=== PATIENT | female | born 1955 | race Caucasian/White ===

== ENCOUNTER 2016-12-28 00:47 | Emergency (ER) | payer OTHER ==
[~2016-12-28] VITALS: Ht 167.6 cm; Wt 76.0 kg
[~2016-12-28 00:47] MED LIST: DIAZ-90 PO; HYDR-906 PO; OXYC-209 PO
[2016-12-28 00:50] VITALS: Ht 167.6 cm; Wt 76.0 kg
[2016-12-28] MEDS ORDERED: HYDROmorphONE 2 MG/ML SYG IM STA (03:58)
[2016-12-28] MEDS ORDERED: DIAZEPAM 5 MG/ML SYG IM ONE (04:00)
[2016-12-28] MEDS ORDERED: LIDOCAINE/MYLANTA 40 ML BTL PO ONE (04:00)
[2016-12-28] MEDS ORDERED: ONDANSETRON (ODT) 4 MG TAB ODT ONE (04:04)
[2016-12-28] MEDS ORDERED: ONDANSETRON 4 MG INJ ONE (04:11)
--- NOTE | 2016-12-28 04:16 | ERD ---
ER Documentation Chief Complaint Date/Time DATE: 12/28/16 TIME: 04:15 Chief Complaint right facial pain, hx- trigeminal neuralgia, abd pain with N/V x 1 day HPI 61-year-old female complains of right facial pain. History of chronic trigeminal neuralgia. Comes in for breakthrough pain. No new trauma. Nonfocal neurologically. No other current issues. ROS All systems reviewed and are negative except as per history of present illness. Medications Home Meds Active Scripts Diazepam* (Valium*) 5 Mg Tablet, 5 MG PO Q8 Y for ANXIETY, #7 TAB Prov:ELIZABET US BUSINESS LAW INSTRUCTOR 07/04/16 Oxycodone HCl/Acetaminophen (Percocet 10-325 mg Tablet) 1 Each Tablet, 1 EACH PO Q6, #7 TAB Prov:ELIZABET US BUSINESS LAW INSTRUCTOR 07/04/16 Reported Medications Hydrocodone/Acetaminophen ([place] 5-325 Tablet) Unknown Strength Tablet, PO Q6H Y for PAIN, #20 TAB 07/04/16 Allergies Allergies: Coded Allergies: No Known Allergy (Unverified , 07/04/16) PMhx/Soc History of Surgery: Yes (BRAIN SX) Anesthesia Reaction: No Hx Neurological Disorder: Yes (TRIGEMINAL NERVE DISEASE) Hx Respiratory Disorders: No Hx Cardiac Disorders: No Hx Psychiatric Problems: No Hx Miscellaneous Medical Probl: Yes (UPSET STOMACH DUE TO MEDS) Hx Alcohol Use: No Hx Substance Use: No Hx Tobacco Use: Yes Smoking Status: Current every day smoker Physical Exam Vitals Vital Signs Date Time Temp Pulse Resp B/P Pulse Ox O2 Delivery O2 Flow Rate FiO2 12/28/16 00:50 98.4 92 20 147/84 98 Physical Exam Const: [] Head: Atraumatic Eyes: Normal Conjunctiva ENT: Normal External Ears, Nose and Mouth. Neck: Full range of motion..~ No meningismus. Resp: Clear to auscultation bilaterally Cardio: Regular rate and rhythm, no murmurs Abd: Soft, non tender, non distended. Normal bowel sounds Skin: No petechiae or rashes Back: No midline or flank tenderness Ext: No cyanosis, or edema Neur: Awake and alert Psych: Normal Mood and Affect Results 24 hrs Current Medications Medications (Trade) Dose Ordered Sig/Tyler Route PRN Reason Start Time Stop Time Status Last Admin Dose Admin Hydromorphone HCl (Dilaudid) 2 mg ONCE STAT IM 12/28/16 03:58 12/28/16 03:59 DC 12/28/16 04:07 Diazepam (Valium) 5 mg ONCE ONCE IM 12/28/16 04:00 12/28/16 04:01 DC 12/28/16 04:07 Miscellaneous Medication (Gi Cocktail (2)) 40 ml ONCE ONCE PO 12/28/16 04:00 12/28/16 04:01 DC 12/28/16 04:07 Ondansetron HCl (Zofran Odt) 4 mg STK-MED ONCE ODT 12/28/16 04:04 12/28/16 04:05 DC Ondansetron HCl (Zofran Inj) 4 mg STK-MED ONCE .ROUTE 12/28/16 04:11 12/28/16 04:12 DC Procedures/MDM Patient given Dilaudid and Valium with good response. Patient will be discharged home. Told to follow-up with primary care physician and banner painter Departure Diagnosis: Primary Impression: Chronic pain Chronic pain type: chronic pain syndrome Qualified Code: G89.4 - Chronic pain syndrome Condition: Stable Patient Instructions: Chronic Pain BILL CM Dec 28, 2016 04:16
[2016-12-28] MEDS ORDERED: ONDANSETRON 4 MG INJ IM ONE (04:18)
[2016-12-28 04:34] VITALS: BP 124/63; PULSE 67; RESP 18
== END 2016-12-28 04:34 | disposition home or self-care (01) ==
LOC: E/R 00:47
DX: G89.4 Chronic pain syndrome (principal); R11.2 Nausea with vomiting, unspecified; F17.210 Nicotine dependence, cigarettes, uncomplicated
CPT/HCPCS: J1170; J2405; J3360; Z7610; 96372

== ENCOUNTER 2017-01-06 20:25 | Emergency (ER) | payer OTHER ==
[~2017-01-06] VITALS: Wt 78.5 kg
[2017-01-06] MEDS ORDERED: HYDROmorphONE 2 MG/ML SYG IM STA (21:53)
--- NOTE | 2017-01-06 21:58 | ERD ---
ER Documentation Chief Complaint Date/Time DATE: 01/06/17 TIME: 21:56 Chief Complaint Chronic face pain wants to get dilaudid HPI 61-year-old female presents with flareup of her chronic trigeminal neuralgia on the right side. She is followed by pain management but was told by her pain management to go to the emergency room at times but she is unable to control her pain at home and so she came today. She states in the past she has had good relief of her symptoms with Dilaudid, Zofran, Valium, and GI cocktail. She states this feels like a normal flare she has no other complaints. ROS All systems reviewed and are negative except as per history of present illness. Medications Home Meds Active Scripts Diazepam* (Valium*) 5 Mg Tablet, 5 MG PO Q8 Y for ANXIETY, #7 TAB Prov:ELIZABET US NP 07/04/16 Oxycodone HCl/Acetaminophen (Percocet 10-325 mg Tablet) 1 Each Tablet, 1 EACH PO Q6, #7 TAB Prov:ELIZABET US NP 07/04/16 Reported Medications Hydrocodone/Acetaminophen ([place] 5-325 Tablet) Unknown Strength Tablet, PO Q6H Y for PAIN, #20 TAB 07/04/16 Allergies Allergies: Coded Allergies: No Known Allergy (Unverified , 07/04/16) PMhx/Soc History of Surgery: Yes (BRAIN SX) Anesthesia Reaction: No Hx Neurological Disorder: Yes (TRIGEMINAL NERVE DISEASE) Hx Respiratory Disorders: No Hx Cardiac Disorders: No Hx Psychiatric Problems: No Hx Miscellaneous Medical Probl: Yes (UPSET STOMACH DUE TO MEDS) Hx Alcohol Use: No Hx Substance Use: No Hx Tobacco Use: Yes FmHx Family History: No diabetes Physical Exam Vitals Vital Signs Date Time Temp Pulse Resp B/P Pulse Ox O2 Delivery O2 Flow Rate FiO2 01/06/17 20:51 97.6 88 20 162/75 97 Physical Exam General: well developed, well nourished, alert, nontoxic, no distress Head: normocephalic, atraumatic eyes: perrl Oropharynx: no tonsilar erythema or edema, uvula midline, no exudates, no kissing tonsils, no drooling Respiratory: Clear to auscaultation bilaterally, speaks in full sentences, no use of accesory muscles or labored breathing, no rales, ronchi, or wheezing Cardiovascular: RRR, No murmurs GI: soft, non tender, non distended, negative murphys sign, negative mcburneys point tenderness, no cva tenderness bilaterally, no rebound or guarding Back: no midline tenderness, no step offs or bony abnormalities, sensation to light touch in tact Neuro: Alert and oriented, normal speech, normal gait, no cerebellar sign Results 24 hrs Current Medications Medications (Trade) Dose Ordered Sig/Tyler Route PRN Reason Start Time Stop Time Status Last Admin Dose Admin Hydromorphone HCl (Dilaudid) 2 mg ONCE STAT IM 01/06/17 21:53 01/06/17 21:54 DC Diazepam (Valium) 5 mg ONCE ONCE IM 01/06/17 22:00 01/06/17 22:01 Ondansetron HCl (Zofran Odt) 4 mg ONCE STAT ODT 01/06/17 21:53 01/06/17 21:54 DC Miscellaneous Medication (Gi Cocktail (2)) 40 ml ONCE ONCE PO 01/06/17 22:00 01/06/17 22:01 Procedures/MDM Patient presents with flareup of her chronic trigeminal neuralgia pain. She was given Dilaudid, Valium, Zofran, and GI cocktail with relief of her symptoms. She is instructed to follow-up with pain management. Recommended this patient follow up with her primary care doctor within 48 hours or return to the emergency room for any worsening of symptoms. However this time I do believe there is suitable for outpatient management. I answered all their questions and they agreed with the plan and were discharged home. Departure Diagnosis: Primary Impression: Chronic pain Condition: Stable Patient Instructions: Chronic Pain Additional Instructions: Call your primary care doctor TOMORROW for an appointment during the next 1-2 days.See the doctor sooner or return here if your condition worsens before your appointment time. RICK ESCALONA PA-C January 06, 2017 21:58
[2017-01-06] MEDS: ONDANSETRON (ODT) 4 MG TAB ODT STA ×2 (22:00→22:15)
[2017-01-06] MEDS ORDERED: LIDOCAINE/MYLANTA 40 ML BTL PO ONE (22:00)
[2017-01-06] MEDS ORDERED: DIAZEPAM 5 MG/ML SYG IM ONE (22:00)
[2017-01-06] MEDS ORDERED: ONDANSETRON 4 MG INJ IM STA (22:02)
[2017-01-06 22:31] VITALS: BP 137/73; PULSE 95; RESP 16
== END 2017-01-06 22:33 | disposition home or self-care (01) ==
LOC: FTE 20:25
DX: G89.29 Other chronic pain (principal); Z87.891 Personal history of nicotine dependence
CPT/HCPCS: J1170; J2405; J3360; Z7610; 96372

== ENCOUNTER 2017-01-16 22:46 | Emergency (ER) | payer OTHER ==
[~2017-01-16] VITALS: Ht 167.6 cm; Wt 74.5 kg
[2017-01-16 22:51] VITALS: Ht 167.6 cm; Wt 74.5 kg
[2017-01-16] MEDS ORDERED: ONDANSETRON 4 MG INJ IM STA (23:50)
[2017-01-16] MEDS ORDERED: HYDROmorphONE 2 MG/ML SYG IM STA (23:50)
[2017-01-17] MEDS ORDERED: DIAZEPAM 5 MG/ML SYG IM ONE
[2017-01-17] MEDS ORDERED: LIDOCAINE/MYLANTA 40 ML BTL PO ONE
--- NOTE | 2017-01-17 00:11 | ERD ---
ER Documentation Chief Complaint Date/Time DATE: 01/17/17 TIME: 00:05 Chief Complaint c/o right facial pain today hx of trigeminal neuralgia HPI 41-year-old female presents here in emergency department for complaints of right facial pain, patient has had this pain before, chronic pain, has history of chronic trigeminal neuralgia. Patient is on strong pain medications, is currently on pain management. Patient was told to come here in emergency department ROS All systems reviewed and are negative except as per history of present illness. Medications Home Meds Active Scripts Diazepam* (Valium*) 5 Mg Tablet, 5 MG PO Q8 Y for ANXIETY, #7 TAB Prov:ELIZABET US FLAG FOOTBALL COACH 07/04/16 Oxycodone HCl/Acetaminophen (Percocet 10-325 mg Tablet) 1 Each Tablet, 1 EACH PO Q6, #7 TAB Prov:ELIZABET US [employer] FOOTBALL COACH 07/04/16 Reported Medications Hydrocodone/Acetaminophen ([place] 5-325 Tablet) Unknown Strength Tablet, PO Q6H Y for PAIN, #20 TAB 07/04/16 Allergies Allergies: Coded Allergies: No Known Allergy (Unverified , 01/16/17) PMhx/Soc History of Surgery: Yes (BRAIN SX) Anesthesia Reaction: No Hx Neurological Disorder: Yes (TRIGEMINAL NERVE DISEASE) Hx Respiratory Disorders: No Hx Cardiac Disorders: No Hx Psychiatric Problems: No Hx Miscellaneous Medical Probl: Yes (UPSET STOMACH DUE TO MEDS) Hx Alcohol Use: No Hx Substance Use: No Hx Tobacco Use: Yes Smoking Status: Never smoker Physical Exam Vitals Vital Signs Date Time Temp Pulse Resp B/P Pulse Ox O2 Delivery O2 Flow Rate FiO2 01/16/17 22:51 96.9 74 20 144/70 96 Physical Exam GENERAL: The patient is well developed and appropriate for usual state of health, in no apparent distress. CHEST: Clear to auscultation bilaterally. There are no rales, wheezes or rhonchi. HEART: Regular rate and rhythm. No murmurs, clicks, rubs or gallops. No S3 or S4. ABDOMEN: Soft, nontender and nondistended. Good bowel sounds. No rebound or guarding. No gross peritonitis. No gross organomegaly or masses. No Rodríguez sign or McBurney point tenderness. BACK: No midline or flank tenderness. EXTREMITIES: Equal pulses bilaterally. There is no peripheral clubbing, cyanosis or edema. No focal swelling or erythema. Full range of motion. Grossly neurovascularly intact. NEURO: Alert and oriented. Cranial nerves 2-12 intact. Motor strength in all 4 extremities with 5/5 strength. Sensation grossly intact. Normal speech and gait. SKIN: There is no apparent rash or petechia. The skin is warm and dry. HEMATOLOGIC AND LYMPHATIC: There is no evidence of excessive bruising or lymphedema. No gross cervical, axillary, or inguinal lymphadenopathy. Procedures/MDM Medical decision-making. Patient is here for chronic pain, patient has history of trigeminal neuralgia. Patient is currently being managed by pain specialist, has an appointment on January 26, patient was told to come here in emergency department for temporary treatment of her pain. Patient was given medications, was advised to continue medications at home and to see primary care doctor or pain specialist sooner than expected. Patient is advised to return to emergency department for high fever, paralysis, paresthesias, or any worsening symptoms. Disposition: Home. Stable. Departure Diagnosis: Primary Impression: Chronic pain Chronic pain type: other chronic pain Qualified Code: G89.29 - Other chronic pain Condition: Stable Patient Instructions: Chronic Pain Additional Instructions: see painter interior finish ELIZABET US NP January 17, 2017 00:11
[2017-01-17 00:58] VITALS: BP 141/92; PULSE 70; RESP 16
== END 2017-01-17 00:59 | disposition home or self-care (01) ==
LOC: FTE 22:46
DX: G89.29 Other chronic pain (principal)
CPT/HCPCS: 96372; J1170; J2405; J3360; Z7502; Z7610

== ENCOUNTER 2017-02-24 11:46 | Emergency (ER) | payer OTHER ==
[~2017-02-24] VITALS: Ht 170.2 cm; Wt 70.0 kg
[2017-02-24 11:53] VITALS: Ht 170.2 cm; Wt 70.0 kg
[2017-02-24] MEDS ORDERED: LIDOCAINE/MYLANTA 40 ML BTL PO ONE (13:30)
--- NOTE | 2017-02-24 14:02 | ERD ---
ER Documentation Chief Complaint Date/Time DATE: 02/24/17 TIME: 13:59 Chief Complaint DENTAL PAIN RELATED TO PRIOR DENTAL INJURY HPI Patient is a 61-year-old female with chronic pain who presents with pain. She has trigeminal pain in the right face. She has had this for a long time. She is seeing a pain management doctor and actually saw this doctor yesterday a Dr. Watt. She received a prescription for 8 mg of Dilaudid tablets from his doctor yesterday. She said that she is still having pain and says "I need Dilaudid IV and Valium IV". Upon review of old medical records she has multiple visits to the ER for similar type complaints. Review of the emergency department information exchange system shows visits to 3 separate emergency departments for a total of 15 visits over the past 1 year. ROS All systems reviewed and are negative except as per history of present illness. Medications Home Meds Active Scripts Diazepam* (Valium*) 5 Mg Tablet, 5 MG PO Q8 Y for ANXIETY, #7 TAB Prov:ELIZABET US NP 07/04/16 Oxycodone HCl/Acetaminophen (Percocet 10-325 mg Tablet) 1 Each Tablet, 1 EACH PO Q6, #7 TAB Prov:ELIZABET US NP 07/04/16 Reported Medications Hydrocodone/Acetaminophen ([place] 5-325 Tablet) Unknown Strength Tablet, PO Q6H Y for PAIN, #20 TAB 07/04/16 Allergies Allergies: Coded Allergies: No Known Allergy (Unverified , 01/16/17) PMhx/Soc History of Surgery: Yes (BRAIN SX) Anesthesia Reaction: No Hx Neurological Disorder: Yes (TRIGEMINAL NERVE DISEASE) Hx Respiratory Disorders: No Hx Cardiac Disorders: No Hx Psychiatric Problems: No Hx Miscellaneous Medical Probl: Yes (UPSET STOMACH DUE TO MEDS) Hx Alcohol Use: No Hx Substance Use: No Hx Tobacco Use: Yes Smoking Status: Current every day smoker FmHx Family History: No diabetes Physical Exam Vitals Vital Signs Date Time Temp Pulse Resp B/P Pulse Ox O2 Delivery O2 Flow Rate FiO2 02/24/17 11:53 97.5 56 16 116/77 95 Physical Exam Const: Mild distress secondary to pain, slurring speech Head: Atraumatic Eyes: Normal Conjunctiva ENT: Normal External Ears, Nose and Mouth. Neck: Full range of motion..~ No meningismus. Resp: Clear to auscultation bilaterally Cardio: Regular rate and rhythm, no murmurs Abd: Soft, non tender, non distended. Normal bowel sounds Skin: No petechiae or rashes Back: No midline or flank tenderness Ext: No cyanosis, or edema Neur: Awake and alert, slurring speech Psych: Depressed affect Results 24 hrs Current Medications Medications (Trade) Dose Ordered Sig/Tyler Route PRN Reason Start Time Stop Time Status Last Admin Dose Admin Miscellaneous Medication (Gi Cocktail (2)) 40 ml ONCE ONCE PO 02/24/17 13:30 02/24/17 13:31 DC 02/24/17 13:12 Procedures/MDM Patient is a 61-year-old female who appears to have acute on chronic pain. I told her that per our pain management policy here at [facility] that I would not give her IV or IM narcotic medicines or benzodiazepine medicines. She and her son were mad and asked me to call the pain management doctor which I did. I spoke with Dr. Watt who said "why would she need IV Dilaudid when I gave her 8 mg of Dilaudid yesterday?" He agreed that we did not need to give her IV or IM narcotic medicines at this time. The patient will be discharged and I would not give her narcotic medicines in the future. She will need to get her pain medications from her pain management doctor. She will be referred to the chronic pain management committee so that a care plan can be developed for her as well to help manage her pain. Departure Diagnosis: Primary Impression: Chronic pain Chronic pain type: other chronic pain Qualified Code: G89.29 - Other chronic pain Additional Impression: Pain, dental Condition: Fair Patient Instructions: Chronic Pain, Dental Pain Referrals: Dr. Sorensen Additional Instructions: SPECIALIST: YOU HAVE A MEDICAL CONDITION WHICH REQUIRES YOU TO SEE A SPECIALIST WITHIN THE NEXT 1-2 DAYS. PLEASE FOLLOW UP WITH YOUR PRIMARY PHYSICIAN FOR REFFERAL.IF YOU DO NOT HAVE A PRIMARY CARE PHYSICIAN AND/OR YOU CAN NOT AFFORD TO SEE A PHYSICIAN THE FOLLOWING RESOURCES HAVE BEEN SUPPLIED TO YOU. IT IS YOUR RESPONSIBILITY TO BE SEEN BY THE SPECIALIST DIA CHOUDHURY MD Feb 24, 2017 14:02
== END 2017-02-24 13:58 | disposition home or self-care (01) ==
LOC: FTE 11:46
DX: K08.89 Other specified disorders of teeth and supporting structures (principal); F17.210 Nicotine dependence, cigarettes, uncomplicated
CPT/HCPCS: 99282

== ENCOUNTER 2017-06-28 22:05 | Emergency (ER) | payer SELFPAY ==
[~2017-06-28] VITALS: Ht 165.1 cm; Wt 73.5 kg
[2017-06-28 22:23] VITALS: Ht 165.1 cm; Wt 73.5 kg
== END 2017-06-29 02:58 | disposition left against medical advice (07) ==
LOC: FTE 22:05
DX: Z53.21 Procedure and treatment not carried out due to patient leaving prior to being seen by health care provider (principal)

== ENCOUNTER 2017-07-05 22:39 | Emergency (ER) | payer OTHER ==
[~2017-07-05] VITALS: Ht 165.1 cm; Wt 67.0 kg
[2017-07-05 22:43] VITALS: Ht 165.1 cm; Wt 67.0 kg
[2017-07-05] MEDS ORDERED: BACL10TA PO (23:24)
[2017-07-05] MEDS ORDERED: HYDR8TAB PO (23:24)
[2017-07-05] MEDS ORDERED: PREG150C PO (23:24)
[2017-07-05] MEDS ORDERED: EXCED PO (23:24)
[2017-07-05] MEDS ORDERED: CARB200T43 PO (23:24)
[2017-07-05] MEDS ORDERED: UDTEG GTB (23:24)
[2017-07-05] MEDS ORDERED: DULO60CA59 PO (23:24)
[2017-07-05] MEDS ORDERED: OMEP40CA6 PO (23:24)
[2017-07-05] MEDS ORDERED: LISI40TA9 PO (23:24)
[2017-07-05] MEDS ORDERED: IBUP-1542 PO (23:34)
[2017-07-05] MEDS ORDERED: CLON2TAB3 PO (23:34)
[2017-07-05] MEDS ORDERED: TRAZ50TA18 PO (23:34)
[2017-07-05] MEDS ORDERED: [UNRECOGNIZED DRUG - CODE] PO (23:34)
[2017-07-05] MEDS ORDERED: ATEN50TA PO (23:34)
[2017-07-05] MEDS ORDERED: ONDA8TAB83 PO (23:34)
[2017-07-05] MEDS ORDERED: LEVO500T10 PO (23:34)
[2017-07-05] MEDS ORDERED: ONDANSETRON (ODT) 4 MG TAB ODT STA (23:37)
--- NOTE | 2017-07-05 23:40 | RADRPT ---
PROCEDURE: Chest. CLINICAL INDICATION: Shortness of breath. TECHNIQUE: Single frontal view of the chest was obtained. COMPARISON: None. FINDINGS: The cardiac silhouette is magnified. The aortic arch is unremarkable. There is no focal consolidat ion, vascular congestion or pleural effusion. There is no pneumothorax. IMPRESSION: No evidence for active cardiopulmonary disease. .Praneeth Hunter MD, MD Date Time Electronically viewed and signed by .Praneeth Hunter MD, on 07/05/2017 23:40 .T/
[2017-07-05] MEDS ORDERED: ONDA4TAB14 PO (23:56)
[2017-07-06] MEDS ORDERED: LIDOCAINE/MYLANTA 40 ML BTL PO ONE
--- NOTE | 2017-07-06 23:24 | ERD ---
ER Documentation Chief Complaint Chief Complaint TRIGEMINAL NEURALGIA W/ WORSENING PAIN SINCE YESTERDAY HPI The patient was seen on 07/05/2017 The patient is a 61-year-old female, presenting to the ER because she wants Dilaudid injection for her chronic trigeminal neuralgia pain. She is follow-up with chronic pain management physician. She is controlled on Dilaudid, however she is that it is not helping her. She denies any trauma, fever, chills, syncope, near syncope, neck pain, chest pain, dyspnea, abdominal pain, vomiting , dysuria. She was in the ER in February 24, 2017 for similar request. She smokes socially Past medical history: Chronic pain syndrome, trigeminal neuralgia ROS All systems reviewed and are negative except as per history of present illness. Medications Home Meds Active Scripts Ondansetron (Ondansetron Odt) 4 Mg Tab.rapdis, 4 MG PO Q6H Y for NAUSEA AND/OR VOMITING, #10 TAB Prov:HEIDE PRECIADO MD 07/05/17 Diazepam* (Valium*) 5 Mg Tablet, 5 MG PO Q8 Y for ANXIETY, #7 TAB Prov:ELIZABET US NP 07/04/16 Oxycodone HCl/Acetaminophen (Percocet 10-325 mg Tablet) 1 Each Tablet, 1 EACH PO Q6, #7 TAB Prov:ELIZABET US NP 07/04/16 Reported Medications Trazodone Hcl* (Trazodone Hcl*) 50 Mg Tablet, 100 MG PO QHS, #30 TAB TAKE 2 TABLETS PO AT BEDTIME 07/05/17 Atenolol* (Atenolol*) 50 Mg Tablet, 50 MG PO DAILY, #30 TAB TAKE 1 TABLET PO ONCE A DAY 07/05/17 Ondansetron Hcl* (Ondansetron Hcl*) 8 Mg Tablet, 8 MG PO BID Y for NAUSEA AND OR VOMITING, TAB TAKE 1 TABLET PO TWICE A DAY IF NEEDED FOR NAUSEA AND VOMITING 07/05/17 Clonazepam* (Clonazepam*) 2 Mg Tablet, 2 MG PO BID, TAB TAKE 1 TAB PO TWICE DAILY 07/05/17 Ibuprofen* (Ibuprofen*) 600 Mg Tablet, 600 MG PO Q8 for PAIN, TAB TAKE 1 TAB PO THREE TIMES A DAY 07/05/17 Chlorzoxazone (Chlorzoxazone) 500 Mg Tablet, 500 MG PO BID, TAB TAKE 1 TABLET PO TWICE DAILY 07/05/17 Levofloxacin* (Levofloxacin*) 500 Mg Tablet, 500 MG PO Q24H, TAB 07/05/17 Carbamazepine* (Carbamazepine* XR) 200 Mg Tab.er.12h, 200 MG PO Q12, #60 TAB.SA 07/05/17 Baclofen* (Baclofen*) 10 Mg Tablet, 10 MG PO TID, TAB TAKE 1 TAB PO THREE TIMES A DAY 07/05/17 Omeprazole* (Omeprazole*) 40 Mg Capsule.dr, 40 MG PO DAILY, #30 CAP TAKE 1 CAP PO ONCE DAIY BEEFORE A MEAL IN COMBINATION W/CLARITHROMYCIN FO 30 DAYS 07/05/17 Pregabalin* (Lyrica*) 150 Mg Capsule, 150 MG PO Q12H, CAP TAKE 1 CAPSULE BY MOUTH Q12H 07/05/17 Duloxetine Hcl* (Duloxetine Hcl*) 60 Mg Capsule.dr, 60 MG PO DAILY, #30 CAP 07/05/17 Acetaminophen/Aspirin/Caffeine* (Excedrin*) 1 Tab Tab, 1 TAB PO for PAIN LEVEL 1 -3, TAB 07/05/17 Lisinopril* (Lisinopril*) 40 Mg Tablet, 40 MG PO DAILY, #30 TAB 07/05/17 Hydromorphone Hcl* (Hydromorphone Hcl*) 8 Mg Tablet, 8 MG PO PRN, TAB TAKE 1 TAB PO ONCE DAILY IF NEEDED FOR PAIN 07/05/17 Hydrocodone/Acetaminophen ([place] 5-325 Tablet) Unknown Strength Tablet, PO Q6H Y for PAIN, #20 TAB 07/04/16 Discontinued Reported Medications Carbamazepine* (Tegretol*) 100 Mg/5 Ml Susp, 200 MG GTB BID, ML TAKE 1 TAB PO TWICE A DAY 07/05/17 Allergies Allergies: Coded Allergies: No Known Allergy (Unverified , 06/28/17) PMhx/Soc History of Surgery: Yes (BRAIN SX) Anesthesia Reaction: No Hx Neurological Disorder: Yes (TRIGEMINAL NERVE DISEASE) Hx Respiratory Disorders: No Hx Cardiac Disorders: No Hx Psychiatric Problems: No Hx Miscellaneous Medical Probl: Yes (UPSET STOMACH DUE TO MEDS) Hx Alcohol Use: No Hx Substance Use: No Hx Tobacco Use: Yes Smoking Status: Current every day smoker Physical Exam Vitals Vital Signs Date Time Temp Pulse Resp B/P Pulse Ox O2 Delivery O2 Flow Rate FiO2 07/05/17 22:43 98.2 72 20 152/84 95 Physical Exam Const: No acute distress. Head: Atraumatic. Eyes: Normal Conjunctiva. ENT: Normal External Ears, Nose and Mouth. Neck: Full range of motion. No meningismus. Resp: Scattered rhonchi, no wheezes Cardio: Regular rate and rhythm. Abd: Soft, non distended, normal bowel sounds, non tender. Skin: No petechiae or rashes. Back: No midline or flank tenderness. Ext: No cyanosis, or edema. Neur: Awake and alert. No focal deficit Psych: Normal Mood and Affect. Results 24 hrs Current Medications Medications (Trade) Dose Ordered Sig/Tyler Route PRN Reason Start Time Stop Time Status Last Admin Dose Admin Miscellaneous Medication (Gi Cocktail (2)) 40 ml ONCE ONCE PO 07/06/17 00:00 07/06/17 00:01 DC 07/06/17 00:48 Ondansetron HCl (Zofran Odt) 4 mg ONCE STAT ODT 07/05/17 23:37 07/05/17 23:38 DC 07/06/17 00:48 Procedures/[place] [id number] Radiology Main Line: [phone] DIAGNOSTIC IMAGING REPORT Patient: SADIE WILSON : 1955 Age: 61 Sex: F MR #: [id number] DOS: 07/05/17 2249 Ordering MD: HEIDE PRECIADO MD Location: E/R Room/Bed: PROCEDURE: Chest. CLINICAL INDICATION: Shortness of breath. TECHNIQUE: Single frontal view of the chest was obtained. COMPARISON: None. FINDINGS: The cardiac silhouette is magnified. The aortic arch is unremarkable. There is no focal consolidation, vascular congestion or pleural effusion. There is no pneumothorax. IMPRESSION: No evidence for active cardiopulmonary disease. .Praneeth Hunter MD, Date Time Electronically viewed and signed by .Praneeth Hunter MD, MD on 07/05/2017 23:40 .T/ CC: HEIDE PRECIADO MD EKG: Read by emergency physician Rate/Rhythm: Normal Sinus Rhythm 70 beats/min QRS, ST, T-waves: No ST elevation, no T inversion, Left atrial enlargement Impression: Abnormal EKG MEDICAL MAKING DECISION: The patient is a 61-year-old female, presenting to the ER for chronic pain syndrome. She requested a GI cocktail and Zofran that were given to her. I advised her that she has a follow-up with her chronic pain medicine physician to titrate her pain medication Departure Diagnosis: Primary Impression: Chronic pain Condition: Good Patient Instructions: Trigeminal Neuralgia Referrals: VISH MACHADO MD (PCP) Additional Instructions: Call your chronic pain managment physician TOMORROW for an appointment during the next 1-2 days.See the doctor sooner or return here if your condition worsens before your appointment time. The patient's blood pressure was elevated (>120/80) but appears stable without evidence of hypertension emergency or urgency. The patient was counseled about the risks of hypertension and urged to pursue outpatient monitoring and therapy within a week with their primary care physician. I discussed the findings with the patient. I advised the patient to follow-up with the primary physician in about 1-2 days, sooner if needed and return if any concern. Disclaimer: Inadvertent spelling and grammatical errors are likely due to EHR/ dictation software use and do not reflect on the overall quality of patient care. Also, please note that the electronic time recorded on this note does not necessarily reflect the actual time of the patient encounter. HEIDE PRECIADO MD Jul 06, 2017 23:23
== END 2017-07-06 00:59 | disposition home or self-care (01) ==
LOC: E/R 22:39
DX: G50.0 Trigeminal neuralgia (principal); R40.2252 Coma scale, best verbal response, oriented, at arrival to emergency department; G89.29 Other chronic pain; F17.210 Nicotine dependence, cigarettes, uncomplicated; R40.2142 Coma scale, eyes open, spontaneous, at arrival to emergency department; R40.2362 Coma scale, best motor response, obeys commands, at arrival to emergency department; R07.9 Chest pain, unspecified
CPT/HCPCS: 71010; 93005; Z7502; Z7610

== ENCOUNTER 2018-07-11 19:02 | Emergency (ER) | END 2018-07-11 20:20 | disposition left against medical advice (07) ==

== ENCOUNTER 2018-12-10 22:23 | Emergency (ER) | payer OTHER ==
[~2018-12-10] VITALS: Ht 167.6 cm; Wt 63.8 kg
[~2018-12-10 22:23] MED LIST changes: +ATEN50TA PO; +BACL10TA PO; +CARB200T43 PO; +CLON2TAB12 PO; -DIAZ-90 PO; +DIAZ5TAB PO; +DULO60CA59 PO; +EXCED PO; +HYDR-4011 PO; -HYDR-906 PO; +HYDR8TAB PO; +IBUP-1542 PO; +LEVO500T10 PO; +LISI40TA3 PO; +OMEP40CA6 PO; +ONDA4TAB14 PO; +ONDA8TAB83 PO; +PREG150C PO; +TRAZ-111 PO; +[UNRECOGNIZED DRUG - CODE] PO
[2018-12-10 22:30] VITALS: Ht 167.6 cm; Wt 63.8 kg
[2018-12-11] MEDS ORDERED: BELLADONNA/PHENOBARBITAL TAB PO STA (01:15)
[2018-12-11] MEDS ORDERED: ONDANSETRON 4 MG INJ IV STA (01:15)
[2018-12-11] MEDS ORDERED: HYDROmorphONE 1 MG/ML SYG IV STA (01:15)
[2018-12-11] MEDS ORDERED: LIDOCAINE/MYLANTA 40 ML BTL PO STA (01:15)
--- NOTE | 2018-12-11 01:29 | ERD ---
ER Documentation Chief Complaint Chief Complaint BIB ra 81, generalized body pain. ran out of pain meds. HPI 63-year-old female presents with history of chronic pain and trigeminal neuralgi a complains of generalized pain in multiple areas of her body including neck, face, foot and bilateral legs. States she has a history of trigeminal neuralgia and she thinks that is now acting up. She is requesting pain medication as well as GI cocktail and Zofran. Denies chest pain, shortness of breath, diaphoresis, wheezing, fevers, vomiting, chills, weakness, numbness, tingling. ROS All systems reviewed and are negative except as per history of present illness. Medications Home Meds Active Scripts Hydrocodone/Acetaminophen ([place] 5-325 Tablet) 1 Each Tablet, 1 TAB PO Q6H PRN for PAIN, #7 TAB Prov:BILL CAAL 12/11/18 Ondansetron (Ondansetron Odt) 4 Mg Tab.rapdis, 4 MG PO Q6H PRN for NAUSEA AND/OR VOMITING, #10 TAB Prov:HEIDE PRECIADO MD 07/05/17 Diazepam* (Valium*) 5 Mg Tablet, 5 MG PO Q8 PRN for ANXIETY, #7 TAB Prov:ELIZABET US NP 07/04/16 Oxycodone HCl/Acetaminophen (Percocet 10-325 mg Tablet) 1 Each Tablet, 1 EACH PO Q6, #7 TAB Prov:ELIZABET US NP 07/04/16 Reported Medications Trazodone Hcl* (Trazodone Hcl*) 50 Mg Tablet, 100 MG PO QHS, #30 TAB TAKE 2 TABLETS PO AT BEDTIME 07/05/17 Atenolol* (Atenolol*) 50 Mg Tablet, 50 MG PO DAILY, #30 TAB TAKE 1 TABLET PO ONCE A DAY 07/05/17 Ondansetron Hcl* (Ondansetron Hcl*) 8 Mg Tablet, 8 MG PO BID PRN for NAUSEA AND OR VOMITING, TAB TAKE 1 TABLET PO TWICE A DAY IF NEEDED FOR NAUSEA AND VOMITING 07/05/17 Clonazepam* (Clonazepam*) 2 Mg Tablet, 2 MG PO BID, TAB TAKE 1 TAB PO TWICE DAILY 07/05/17 Ibuprofen* (Ibuprofen*) 600 Mg Tablet, 600 MG PO Q8 for PAIN, TAB TAKE 1 TAB PO THREE TIMES A DAY 07/05/17 Chlorzoxazone (Chlorzoxazone) 500 Mg Tablet, 500 MG PO BID, TAB TAKE 1 TABLET PO TWICE DAILY 07/05/17 Levofloxacin* (Levofloxacin*) 500 Mg Tablet, 500 MG PO Q24H, TAB 07/05/17 Carbamazepine* (Carbamazepine* XR) 200 Mg Tab.er.12h, 200 MG PO Q12, #60 TAB.SA 07/05/17 Baclofen* (Baclofen*) 10 Mg Tablet, 10 MG PO TID, TAB TAKE 1 TAB PO THREE TIMES A DAY 07/05/17 Omeprazole* (Omeprazole*) 40 Mg Capsule.dr, 40 MG PO DAILY, #30 CAP TAKE 1 CAP PO ONCE DAIY BEEFORE A MEAL IN COMBINATION W/CLARITHROMYCIN FO 30 DAYS 07/05/17 Pregabalin* (Lyrica*) 150 Mg Capsule, 150 MG PO Q12H, CAP TAKE 1 CAPSULE BY MOUTH Q12H 07/05/17 Duloxetine Hcl* (Duloxetine Hcl*) 60 Mg Capsule.dr, 60 MG PO DAILY, #30 CAP 07/05/17 Acetaminophen/Aspirin/Caffeine* (Excedrin*) 1 Tab Tab, 1 TAB PO for PAIN LEVEL 1-3, TAB 07/05/17 Lisinopril* (Lisinopril*) 40 Mg Tablet, 40 MG PO DAILY, #30 TAB 07/05/17 Hydromorphone Hcl* (Hydromorphone Hcl*) 8 Mg Tablet, 8 MG PO PRN, TAB TAKE 1 TAB PO ONCE DAILY IF NEEDED FOR PAIN 07/05/17 Hydrocodone/Acetaminophen ([place] 5-325 Tablet) Unknown Strength Tablet, PO Q6H PRN for PAIN, #20 TAB 07/04/16 Allergies Allergies: Coded Allergies: No Known Allergy (Unverified , 12/10/18) PMhx/Soc History of Surgery: Yes (BRAIN SX) Anesthesia Reaction: No Hx Neurological Disorder: Yes (TRIGEMINAL NERVE DISEASE) Hx Respiratory Disorders: No Hx Cardiac Disorders: No Hx Psychiatric Problems: No Hx Miscellaneous Medical Probl: Yes (UPSET STOMACH DUE TO MEDS) Hx Alcohol Use: No Hx Substance Use: No Hx Tobacco Use: Yes FmHx Family History: No diabetes, No coronary disease, No other Physical Exam Vitals Vital Signs Date Temp Pulse Resp B/P (MAP) Pulse Ox O2 O2 Flow FiO2 Time Delivery Rate 12/10/18 98.2 79 20 145/79 99 22:30 (101) 12/10/18 98.1 72 18 146/91 96 22:28 (109) Physical Exam Const: No acute distress Head: Atraumatic Eyes: Normal Conjunctiva ENT: Normal External Ears, Nose and Mouth. Neck: Full range of motion. No meningismus. Resp: Clear to auscultation bilaterally Cardio: Regular rate and rhythm, no murmurs Abd: Soft, non tender, non distended. Normal bowel sounds Skin: No petechiae or rashes Back: No midline or flank tenderness Ext: No cyanosis, or edema Neur: Awake and alert Psych: Normal Mood and Affect Results 24 hrs Current Medications Medications Dose Sig/Tyler Start Time Status Last (Trade) Ordered Route PRN Stop Time Admin Dose Reason Admin 1 mg ONCE STAT 12/11/18 DC Hydromorphone IV 01:15 12/11/18 HCl 01:19 (Dilaudid) Ondansetron 4 mg ONCE STAT 12/11/18 DC HCl (Zofran IV 01:15 12/11/18 Inj) 01:19 40 ml ONCE STAT 12/11/18 DC Miscellaneous PO 01:15 12/11/18 Medication 01:19 (Gi Cocktail (2)) Belladonna/ 2 tab ONCE STAT 12/11/18 DC Phenobarbital PO 01:15 12/11/18 () 01:19 Procedures/MDM EKG: Rate/Rhythm: Normal Sinus Rhythm QRS, ST, T-waves: No changes consistent w/ acute ischemia Impression: No evidence of ischemia or arrhythmia MDM: patient was given pain medication as well as GI cocktail Zofran in the ER. Patient was advised that she needs to follow-up with pain management regarding her chronic pain. I have low suspicition for acute coronary syndrome, pulmonary embolism, aortic dissection, AAA, pneumothorax, esophageal rupture, carotid dissection, pericarditis, myocarditis, or pneumonia based on EKG, patient history and exam. Patient discharged with strict ER precautions. Patient advised to follow up with PMD. All questions answered at discharge. Departure Diagnosis: Primary Impression: Chronic pain Chronic pain type: other chronic pain Qualified Codes: G89.29 - Other chronic pain Additional Impression: Trigeminal neuralgia Condition: Stable MARGOLIES,BILL Dec 11, 2018 01:29
[2018-12-11] MEDS ORDERED: HYDR-4011 PO (01:32)
[2018-12-11 02:12] VITALS: BP 175/86; PULSE 70; RESP 16
== END 2018-12-11 02:15 | disposition home or self-care (01) ==
LOC: FTE 22:23
DX: G50.0 Trigeminal neuralgia (principal); G89.29 Other chronic pain; Z87.891 Personal history of nicotine dependence
CPT/HCPCS: 93005; 96374; 96375; J1170; J2405; Z7502; Z7610

== ENCOUNTER 2019-04-04 20:04 | Emergency (ER) | payer OTHER ==
[~2019-04-04] VITALS: Ht 167.6 cm; Wt 57.4 kg
[~2019-04-04 20:04] MED LIST changes: +METH750T93 PO
[2019-04-04 20:16] VITALS: Ht 167.6 cm; Wt 57.4 kg
[2019-04-04] MEDS ORDERED: morphine 4 MG/ML VIAL IM STA (20:48)
[2019-04-04] MEDS ORDERED: ONDANSETRON (ODT) 4 MG TAB ODT STA (20:48)
[2019-04-04] MEDS ORDERED: LIDOCAINE/MYLANTA 40 ML BTL PO ONE (21:00)
--- NOTE | 2019-04-04 21:41 | ERD ---
ER Documentation Chief Complaint Chief Complaint BIBA FROM HOME R SIDE JAW/FACIAL PAIN SINCE 2004 HPI 63-year-old female with history of trigeminal neuralgia presents for right-sided facial pain x4 days. She states that she is on chronic pain management with her pain management doctor however she states she ran out of pain medications and was unable to get an appointment. She also complains of tightness over the right side of her neck. She states she has been vomiting from the pain. She is on Imitrex and carbamazepine. She also takes narcotic pain medication which she is currently out of. She states that she is about 10 out of 10 pain. The pain is described as a [id number] sensation. The pain is nonradiating. There is no worsening or alleviating factors noted. She denies any fevers or chills. Denies chest pain or shortness of breath. No other modifying factors noted. No other treatments tried at home. ROS All systems reviewed and are negative except as per history of present illness. Medications Home Meds Active Scripts Ondansetron (Ondansetron Odt) 4 Mg Tab.rapdis, 4 MG PO Q6H PRN for NAUSEA AND/OR VOMITING, #15 TAB Prov:HEIDE CHAWLA DO 04/04/19 Methocarbamol* (Robaxin*) 750 Mg Tablet, 750 MG PO TID PRN for MUSCLE SPASMS, #30 TAB Prov:HEIDE CHAWLA DO 04/04/19 Hydrocodone/Acetaminophen ([place] 5-325 Tablet) 1 Each Tablet, 1 EACH PO Q6H PRN for PAIN, #10 TAB Prov:HEIDE CHAWLA DO 04/04/19 Hydrocodone/Acetaminophen ([place] 5-325 Tablet) 1 Each Tablet, 1 TAB PO Q6H PRN for PAIN, #7 TAB Prov:BILL CAAL 12/11/18 Ondansetron (Ondansetron Odt) 4 Mg Tab.rapdis, 4 MG PO Q6H PRN for NAUSEA AND/OR VOMITING, #10 TAB Prov:HEIDE PRECIADO MD 07/05/17 Diazepam* (Valium*) 5 Mg Tablet, 5 MG PO Q8 PRN for ANXIETY, #7 TAB Prov:ELIZABET US NP 07/04/16 Oxycodone HCl/Acetaminophen (Percocet 10-325 mg Tablet) 1 Each Tablet, 1 EACH PO Q6, #7 TAB Prov:ELIZABET US NORA JaylinErica LOVE 07/04/16 Reported Medications Trazodone Hcl* (Trazodone Hcl*) 50 Mg Tablet, 100 MG PO QHS, #30 TAB TAKE 2 TABLETS PO AT BEDTIME 07/05/17 Atenolol* (Atenolol*) 50 Mg Tablet, 50 MG PO DAILY, #30 TAB TAKE 1 TABLET PO ONCE A DAY 07/05/17 Ondansetron Hcl* (Ondansetron Hcl*) 8 Mg Tablet, 8 MG PO BID PRN for NAUSEA AND OR VOMITING, TAB TAKE 1 TABLET PO TWICE A DAY IF NEEDED FOR NAUSEA AND VOMITING 07/05/17 Clonazepam* (Clonazepam*) 2 Mg Tablet, 2 MG PO BID, TAB TAKE 1 TAB PO TWICE DAILY 07/05/17 Ibuprofen* (Ibuprofen*) 600 Mg Tablet, 600 MG PO Q8 for PAIN, TAB TAKE 1 TAB PO THREE TIMES A DAY 07/05/17 Chlorzoxazone (Chlorzoxazone) 500 Mg Tablet, 500 MG PO BID, TAB TAKE 1 TABLET PO TWICE DAILY 07/05/17 Levofloxacin* (Levofloxacin*) 500 Mg Tablet, 500 MG PO Q24H, TAB 07/05/17 Carbamazepine* (Carbamazepine* XR) 200 Mg Tab.er.12h, 200 MG PO Q12, #60 TAB.SA 07/05/17 Baclofen* (Baclofen*) 10 Mg Tablet, 10 MG PO TID, TAB TAKE 1 TAB PO THREE TIMES A DAY 07/05/17 Omeprazole* (Omeprazole*) 40 Mg Capsule.dr, 40 MG PO DAILY, #30 CAP TAKE 1 CAP PO ONCE DAIY BEEFORE A MEAL IN COMBINATION W/CLARITHROMYCIN FO 30 DAYS 07/05/17 Pregabalin* (Lyrica*) 150 Mg Capsule, 150 MG PO Q12H, CAP TAKE 1 CAPSULE BY MOUTH Q12H 07/05/17 Duloxetine Hcl* (Duloxetine Hcl*) 60 Mg Capsule.dr, 60 MG PO DAILY, #30 CAP 07/05/17 Acetaminophen/Aspirin/Caffeine* (Excedrin*) 1 Tab Tab, 1 TAB PO for PAIN LEVEL 1-3, TAB 07/05/17 Lisinopril* (Lisinopril*) 40 Mg Tablet, 40 MG PO DAILY, #30 TAB 07/05/17 Hydromorphone Hcl* (Hydromorphone Hcl*) 8 Mg Tablet, 8 MG PO PRN, TAB TAKE 1 TAB PO ONCE DAILY IF NEEDED FOR PAIN 07/05/17 Hydrocodone/Acetaminophen ([place] 5-325 Tablet) Unknown Strength Tablet, PO Q6H PRN for PAIN, #20 TAB 07/04/16 Allergies Allergies: Coded Allergies: No Known Allergy (Unverified , 12/10/18) PMhx/Soc History of Surgery: Yes (BRAIN SX) Anesthesia Reaction: No Hx Neurological Disorder: Yes (TRIGEMINAL NERVE DISEASE) Hx Respiratory Disorders: No Hx Cardiac Disorders: No Hx Psychiatric Problems: No Hx Miscellaneous Medical Probl: Yes (UPSET STOMACH DUE TO MEDS) Hx Alcohol Use: No Hx Substance Use: No Hx Tobacco Use: Yes Smoking Status: Current every day smoker FmHx Family History: No coronary disease Physical Exam Vitals Vital Signs Date Temp Pulse Resp B/P (MAP) Pulse Ox O2 O2 Flow FiO2 Time Delivery Rate 04/04/19 97.6 89 16 147/68 98 20:16 (94) Physical Exam Const: No acute distress Head: Atraumatic, there is some tenderness to light palpation over the right side of the face Eyes: Normal Conjunctiva ENT: Normal External Ears, Nose and Mouth. Neck: Full range of motion. No meningismus. Resp: Clear to auscultation bilaterally Cardio: Regular rate and rhythm, no murmurs Skin: No petechiae or rashes Ext: No cyanosis, or edema Neur: Awake and alert, facial sensation intact bilaterally. Psych: Normal Mood and Affect Results 24 hrs Current Medications Medications Dose Sig/Tyler Start Time Status Last (Trade) Ordered Route PRN Stop Time Admin Dose Reason Admin Ondansetron 4 mg ONCE STAT 04/04/19 DC 04/04/19 HCl (Zofran ODT 20:48 04/04/19 20:59 Odt) 20:54 Morphine 4 mg ONCE STAT 04/04/19 DC 04/04/19 Sulfate IM 20:48 04/04/19 21:05 (morphine) 20:56 40 ml ONCE ONCE 04/04/19 DC 04/04/19 Miscellaneous PO 21:00 04/04/19 20:57 Medication 21:01 (Gi Cocktail (2)) Procedures/MDM Medical Decision Making: Differential diagnosis includes but not limited to exacerbation of her trigeminal neuralgia, CVA, TIA, Seizure disorder. Patient appeared well on physical exam. Patient was neurovascularly intact. ED course: Patient was given morphine IM, Zofran, GI cocktail. Symptoms improved with treatment. Patient's current pain is likely due to chronic pain from her trigeminal neuralgia. Patient advised she will need to follow with her neurologist. Prescription(s): Patient given prescription for supportive medication(s) including a low-dose short course of [place]. This report was reviewed with patient the last time she got narcotic pain medication was about a month ago. Was felt safe to give a short course of [place] patient is able to see her pain management doctor. Patient advised to follow up with PCP in 1-2 days. Patient advised to return to ED for new or worsening symptoms. Patient stable on discharge from the ED. The patient has been prescribed [place] during this encounter. The patient has been warned about the use of narcotics. The patient should not drive or operate heavy machinery while taking this medication. The patient was also warned about the addictive properties of narcotic medications. Narcan prescription was NOT provided given the following criteria 1. No more than 5 tablets of [place] 10 mg or 10 tablets of [place] 5 mg were prescribed. 2. Concomitant opiate and benzodiazepine prescriptions were not provided. 3. There is no obvious evidence of prior history of opiate abuse or overdose. Disclaimer: Inadvertent spelling and grammatical errors are likely due to EHR/dictation software use and do not reflect on the overall quality of patient care. Also, please note that the electronic time recorded on this note does not necessarily reflect the actual time of the patient encounter. Departure Diagnosis: Primary Impression: Facial pain Condition: Fair Patient Instructions: Pain Management Referrals: COUNTS INCLUDE 234 BEDS AT THE [facility] YOU HAVE RECEIVED A MEDICAL SCREENING EXAM AND THE RESULTS INDICATE THAT YOU DO NOT HAVE A CONDITION THAT REQUIRES URGENT TREATMENT IN THE EMERGENCY DEPARTMENT. FURTHER EVALUATION AND TREATMENT OF YOUR CONDITION CAN WAIT UNTIL YOU ARE SEEN IN YOUR DOCTORS OFFICE WITHIN THE NEXT 1-2 DAYS. IT IS YOUR RESPONSIBILITY TO MAKE AN APPOINTMENT FOR FOLOW-UP CARE. IF YOU HAVE A PRIMARY DOCTOR --you should call your primary doctor and schedule an appointment IF YOU DO NOT HAVE A PRIMARY DOCTOR YOU CAN CALL OUR PHYSICIAN REFERRAL HOTLINE AT IF YOU CAN NOT AFFORD TO SEE A PHYSICIAN YOU CAN CHOSE FROM THE FOLLOWING COMMUNITY CLINICS [facility] [address] [facility] [address] [facility] [facility] [address] [facility] [facility] [address] [facility]. [facility] [address] [facility]. [facility] [address] Additional Instructions: Call your primary care doctor TOMORROW for an appointment during the next 1-2 days.See the doctor sooner or return here if your condition worsens before your appointment time. HEIDE CHAWLA DO Apr 04, 2019 21:41
[2019-04-04 21:43] VITALS: BP 164/86; PULSE 76; RESP 16
== END 2019-04-04 21:43 | disposition home or self-care (01) ==
LOC: FTE 20:04
DX: R51 Headache (principal); F17.210 Nicotine dependence, cigarettes, uncomplicated; R11.10 Vomiting, unspecified
CPT/HCPCS: 96372; J2270; Z7502; Z7610

== ENCOUNTER 2019-04-21 18:30 | Inpatient (IN) | payer OTHER ==
[~2019-04-21] VITALS: Ht 167.6 cm; Wt 58.8 kg
[2019-04-21 19:49] VITALS: BP 146/77; PULSE 63; RESP 16
[2019-04-21 20:00] VITALS: Ht 167.6 cm; Wt 58.8 kg
[2019-04-21] MEDS ORDERED: DEXTROSE 5%-0.45% NACL 1,000 ML IV SCH (21:42)
[2019-04-21] MEDS ORDERED: ACETAMINOPHEN 325 MG TAB PO PRN (22:00)
[2019-04-21] MEDS ORDERED: NACL 0.9% 3 ML SYG IV SCH (22:00)
[2019-04-21] MEDS ORDERED: ALBUTEROL/IPRATROPIUM (NEB) 3 ML AMP HHN PRN (22:00)
[2019-04-21] MEDS ORDERED: morphine 2 MG INJ IV PRN (22:00)
[2019-04-21] MEDS ORDERED: ONDANSETRON 4 MG INJ IV PRN (22:00)
== END 2019-04-21 21:55 | disposition left against medical advice (07) | DRG 440 ==
LOC: PP2 18:48
PROVIDERS: ADMIT Internal Medicine; ATTEND Internal Medicine
DX: K85.90 Acute pancreatitis without necrosis or infection, unspecified (principal)
CPT/HCPCS: J7042